=== PATIENT | male | born 1975 | race Caucasian/White ===

== ENCOUNTER 2021-03-01 16:56 | Emergency (ER) | payer SELFPAY ==
[~2021-03-01] VITALS: Ht 185.4 cm; Wt 99.8 kg
[2021-03-01 18:28] LABS: HEMOGLOBIN 15.5 gm/dl (14.0-17.5); RED BLOOD COUNT 4.95 M/UL (4.20-5.50); WHITE BLOOD COUNT 5.7 K/UL (4.5-11.0)
[2021-03-01 19:06] LABS: BUN/CREATININE RATIO 9 (0-10)
== END 2021-03-01 21:45 | disposition home or self-care (01) ==
LOC: ER1 16:56
PROVIDERS: Physician Assistant Medical
DX: U07.1 COVID-19 (principal); Z23 Encounter for immunization; I25.10 Atherosclerotic heart disease of native coronary artery without angina pectoris; I10 Essential (primary) hypertension; I25.2 Old myocardial infarction; Z88.0 Allergy status to penicillin
CPT/HCPCS: 71045; 80053; 83605; 84484; 85025; 87040; 93005; 99285; M0243